=== PATIENT | male | born 1950 | race Caucasian/White ===

== ENCOUNTER → 2017-07-10 | Outpatient (CLI) | payer BC | LOC: FIMAGING 13:10 | PROVIDERS: ATTEND Allergy & Immunology Allergy | DX: J98.09 Other diseases of bronchus, not elsewhere classified (principal) ==

== ENCOUNTER → 2018-03-12 | Outpatient (CLI) | payer OTHER, BC | LOC: FIMAGING 09:37 | PROVIDERS: ATTEND Internal Medicine | DX: N28.1 Cyst of kidney, acquired (principal) ==